=== PATIENT | male | born 1980 | race Caucasian/White ===

== ENCOUNTER 2016-11-15 06:08 | Emergency (ER) | payer BC ==
--- NOTE | 2016-11-15 06:23 | EDPRACDOC ---
- General Information Information Source: Patient Mode of Arrival: Car - History of Present Illness Onset: YESTERDAY AFTERNOON HPI: PT HAD AFIB, CARDIOVERTED IN LATE JULY. FOLLOWED BY [facility]. LEFT ARM PAIN STARTED YESTERDAY, WORSE UPON WAKING UP THIS AM. PAIN STARTS IN SHOULDER , RADIATES DOWN ARM. WAS IN WRIST, BUT NOW PAIN STOPS IN ELBOW LEFT ARM. NO MODIFYING FACTORS. PT REPORTS AFIB FROM ANABOLIC STEROIDS (USED 10 YEARS), DOSE NOT USE ANYMORE. CURRENTLY PAIN/DISCOMFORT 12/09. NO NAUSEA, DIAPHORESIS. PT DOES NOT SMOKE. NO HTN OR CHOL. NO CAD FAM HX. 04/09/16 ECHO SHOWED EF 40%, DIFFUSE HYPOKINESIA, CARDIOMYOPATHY. <Salo Meade - Last Filed: 11/15/16 06:20> <Ailin Ramirez - Last Filed: 11/15/16 10:32> - General Information Stated Complaint: LEFT ARM PAIN Time Seen by Provider: 11/15/16 06:15 Home Medications: Home Medications Amiodarone [Cordarone, Pacerone] 400 mg PO BID #60 tablet 04/13/16 Atorvastatin Calcium [Lipitor] 40 mg PO DAILY #30 tablet 04/13/16 Lisinopril [Prinivil] 5 mg PO DAILY #30 tablet 04/13/16 Metoprolol Tartrate [Lopressor] 50 mg PO BID #60 tablet 04/13/16 Rivaroxaban [Xarelto] 20 mg PO DAILY #30 tablet 04/13/16 Ketorolac Tromethamine [Toradol] 10 mg PO Q6H PRN #10 tab 11/15/16 Allergies/Adverse Reactions: Allergies Allergy/AdvReac Type Severity Reaction Status Date / Time No Known Allergies Allergy Verified 11/15/16 06:38 ED Past Medical History - History Reviewed Yes Nurses notes reviewed and agree except as marked - Patient Medical History Cardiac History: Denies: Coronary Artery Disease, Hypertension, Congestive Heart Failure, Heart Attack, Syncope Psychological History: Reports: Anxiety (Symptoms associated with a new job.) Comment Only: Substance Use Disorder (alcohol) Surgical History: Reports: Other (Remote knee surgery (meniscal repair).) - Family Medical History Reports: Hypertension, Diabetes, Cancer (grandparents passed with lung c/a) - Social Medical History Smoking Status: Never smoker Social History: Comment Only: Substance Use Disorder (alcohol) <Salo Meade - Last Filed: 11/15/16 06:20> - Patient Medical History Cardiac History: Reports: Other (CHRONIC BRADYCARDIA (WHEN ON BBLOCKER)) <Ailin Ramirez Dell - Last Filed: 11/15/16 10:32> EDM Review of Systems - Review of Systems ROS Negative Except as Marked: Yes All systems reviewed and were negative except as marked Constitutional: No Symptoms Reported Respiratory: No Symptoms Reported Cardiovascular: No Symptoms Reported Gastrointestinal: No Symptoms Reported Genitourinary: No Symptoms Reported <Salo Meade - Last Filed: 11/15/16 06:20> - Physical Exam Constitutional: Alert (Awake), No apparent distress Oriented to: Time, Person, Place Last recorded Vital Signs: Oxygen Pulse Oxygen Saturation O2 Device Oxygen Flow Rate Fraction of Inspired Oxygen ( FIO2) - HEENT Head: Normal ( normocephalic) Eye Exam: Normal (PERRL, EOMI, Sclera white) Oropharynx: Normal (Pharynx:Moist without exudate,Gums-no swelling) Nose: No Symptoms Reported (septum midline) Neck: Normal (FROM, trachea at midline) - Respiratory/Cardiovascular Respiratory: Normal - CTA (BBS clear to auscultation without adventitious sounds ) Cardiovascular: Bradycardia - GI Auscultation: Normal (NABS) Palpation: Normal (Soft,No rebound or guarding, non distended) Tenderness: Non tender Astorga's Sign: Negative - Musculoskeletal Back: Normal (Non-Tender) Extremities: Normal (Normal tone, Pulses 2+ No cyanosis or edema, FROM) - Integumentary Skin: Normal, Warm, Dry Lymphatics: Normal (no adenopathy) - Neurologic Memory Impaired: Normal Motor Function: Normal (Normal tone, Pulses 2+ No cyanosis or edema, FROM) Cranial Nerve: Normal (CN II-X11 intact sensation, strength 5/5) Cerebellar: Normal Mood Description: Normal Perception: Normal <Salo Meade - Last Filed: 11/15/16 06:20> - Physical Exam Last recorded Vital Signs: Last Vital Signs Temp 97.5 F 11/15/16 06:15 Pulse 45 L 11/15/16 07:30 Resp 16 11/15/16 07:30 BP 130/66 11/15/16 07:30 Pulse Ox 94 11/15/16 07:30 Oxygen Pulse Oxygen Saturation 94 O2 Device Room Air Oxygen Flow Rate Fraction of Inspired Oxygen ( FIO2) <Ailni Ramirez Dell - Last Filed: 11/15/16 10:32> - EKG EKG #1 EKG Time: 06:21 -: Yes EKG interpreted by me Rate: bpm: 42 Merlin: Normal Rhythm: SB Block: None Hypertrophy: None ST: Normal Comments: ABNORMAL EKG - Additional Information NO ASPIRIN GIVEN DUE TO XARELTO. <Salo Meade - Last Filed: 11/15/16 06:20> - Re-evaluation Re-evaluation 1 Re-evaluation Time: 07:25 (I ASSUMED CARE FROM DR. MEADE WHILE IN STABLE CONDITION. PATIENT PRESENTS WITH PAIN ON THE LEFT DISTAL TRICEPS AREA ELECTED NON IT SOMETIMES RADIATES TO HIS EXTENSOR SURFACE DISTAL FOREARM. NO ALLEVIATING OR AGGRAVATING FACTORS. NO CHEST PAIN OR SHORTNESS OF BREATH AND NAUSEA VOMITING NO DIAPHORESIS. ARE HE DOES HAVE A HISTORY OF ATRIAL FIBRILLATION AND SOME CARDIOMYOPATHY, KNEES NEVER HAD ISCHEMIC WORKUP PERFORMED SUCH A STRESS TEST OR CARDIAC CATHETERIZATION. AT THIS TIME THE PATIENT IS DEFERRING PAIN MANAGEMENT.) Right Left Shoulder Abduction 5/5 5/5 Shoulder Adduction 5/5 5/5 Bicept Flexion 5/5 5/5 Tricept Extention 5/5 5/5 Wrist Dorsiflexion 5/5 5/5 Wrist Volarflexion 5/5 5/5 Hip Flexion 5/5 5/5 Hip Extension 5/5 5/5 Quad Extension 5/5 5/5 Hamstring Flexion 5/5 5/5 Foot Dorsiflexion 5/5 5/5 Foot Plantarflexion 5/5 5/5 LEFT SENSATION NL OVER RAD, ULNAR, MED, AXILLARY NERVE DISTRIBUTION LEFT RAD AND ULNAR ART 2+ Re-evaluation 3 Re-evaluation Time: 10:31 (SYMPTOMS RESOLVED) - Results 11/15/16 06:30 11/15/16 06:30 WBC 9.3 xk/uL (3.8-10.8) 11/15/16 06:30 RBC 4.96 xM/uL (4.70-6.10) 11/15/16 06:30 Hgb 15.3 g/dL (14.0-18.0) 11/15/16 06:30 Hct 44.4 % (42-52) 11/15/16 06:30 MCV 90 fL (80-94) 11/15/16 06:30 MCH 30.8 pg (27-32) 11/15/16 06:30 MCHC 34.3 g/dl (33-36) 11/15/16 06:30 RDW 12.3 % (11.5-14.5) 11/15/16 06:30 Plt Count 250 xk/uL (130-400) 11/15/16 06:30 MPV 8.9 fL (7.4-10.4) 11/15/16 06:30 Neut % (Auto) 47.9 % (45-76) 11/15/16 06:30 Lymph % (Auto) 37.0 % (17-44) 11/15/16 06:30 Mills % (Auto) 10.4 % (3-10) H 11/15/16 06:30 Eos % (Auto) 3.9 % (0-5) 11/15/16 06:30 Baso % (Auto) 0.8 % (0-2) 11/15/16 06:30 Absolute Neuts (auto) 4.37 xk/uL (1.7-8.2) 11/15/16 06:30 Absolute Lymphs (auto) 3.44 xk/uL (0.65-4.75) 11/15/16 06:30 Sodium 138 mEq/L (137-146) 11/15/16 06:30 Potassium 3.8 mEq/L (3.5-5.1) 11/15/16 06:30 Chloride 102 mEq/L (98-107) 11/15/16 06:30 Carbon Dioxide 25 mMOL/L (22-33) 11/15/16 06:30 Anion Gap 15 mEq/L (8-16) 11/15/16 06:30 BUN 23 MG/DL (9-20) H 11/15/16 06:30 Creatinine 1.00 MG/DL (0.66-1.25) 11/15/16 06:30 Estimated GFR (MDRD) > 60 mL/min (>=60) 11/15/16 06:30 Glucose 104 MG/DL (70-99) H 11/15/16 06:30 Calculated Osmolality 270 MOs/Kg (270-290) 11/15/16 06:30 Calcium 8.7 MG/DL (8.4-10.2) 11/15/16 06:30 Total Bilirubin 0.6 MG/DL (0.2-1.3) 11/15/16 06:30 AST 59 IU/L (17-59) 11/15/16 06:30 ALT 130 IU/L (21-72) H 11/15/16 06:30 Alkaline Phosphatase 61 IU/L (38-126) 11/15/16 06:30 Troponin I < 0.01 ng/mL (<.04) 11/15/16 06:30 Rfu-O-Vkedxpiqylc Pept 39 pg/mL (0-450) 11/15/16 06:30 Total Protein 7.2 G/DL (6.3-8.2) 11/15/16 06:30 Albumin 4.3 G/DL (3.5-5.0) 11/15/16 06:30 Lab Results 11/15/16 11/15/16 06:30 06:30 WBC 9.3 RBC 4.96 Hgb 15.3 Hct 44.4 MCV 90 MCH 30.8 MCHC 34.3 RDW 12.3 Plt Count 250 MPV 8.9 Neut % (Auto) 47.9 Lymph % (Auto) 37.0 Mills % (Auto) 10.4 H Eos % (Auto) 3.9 Baso % (Auto) 0.8 Absolute Neuts (auto) 4.37 Absolute Lymphs (auto) 3.44 Sodium 138 Potassium 3.8 Chloride 102 Carbon Dioxide 25 Anion Gap 15 BUN 23 H Creatinine 1.00 Estimated GFR (MDRD) > 60 Glucose 104 H Calculated Osmolality 270 Calcium 8.7 Total Bilirubin 0.6 AST 59 ALT 130 H Alkaline Phosphatase 61 Troponin I < 0.01 Sbk-[id number]-Htdkthajhgs Pept 39 Total Protein 7.2 Albumin 4.3 - Diagnostic Imaging Chest Image interpreted by: Radiologist Patient Name: RUBEN SHEPHERD JR LOC: ED : 1980 AGE: 36 Order Date:11/15/16 Date of Service: Report # [id number] Ord Physician: Salo Meade DO Exam # [id number] Emergency Physician: Salo Meade DO Exam(s): [id number] RAD/DG CHEST PORTABLE CLINICAL DATA: Left shoulder pain. History of cardiomyopathy EXAM: PORTABLE CHEST 1 VIEW COMPARISON: 04/10/2016 FINDINGS: Chronic cardiomegaly. Stable wide upper mediastinum correlating with fat on March [address] Low lung volumes. There is no edema, consolidation, effusion, or pneumothorax. IMPRESSION: Low volume chest without acute finding. Electronically Signed By: Matthieu Callahan M.D. On: 11/15/2016 07:05 Electronically Signed By: Yaniv Callahan MD Electronically Signed Date/Time: [id number] Dictate Date/Time: 11/15/16 0704 Technologist: Cynthia Jimenez Transcribed By: Jose Transcribed Date/Time: 11/15/16 0705 <Ailin Ramirez - Last Filed: 11/15/16 10:32> - Departure Yes I personally saw and evaluated the patient. <Salo Meade - Last Filed: 11/15/16 06:20> - Departure Disposition: Home Education/Counseling Given To: Patient, Family Member Education/Counseling Given Regarding: Diagnosis, Treatment, Prognosis <Ailin Ramirez - Last Filed: 11/15/16 10:32> - Departure Final Diagnosis: Left shoulder pain Qualifiers: Chronicity: acute Qualified Code(s): M25.512 - Pain in left shoulder Instructions: Paresthesia (ED), Arm Pain (ED) Referrals: Esperanza Rivas MD [Primary Care Provider] - One Week Prescriptions: Ketorolac Tromethamine [Toradol] 10 mg PO Q6H PRN #10 tab PRN Reason: Pain
[2016-11-15 06:37] VITALS: TEMP 97.5; BMI 46.2
[2016-11-15 06:48] LABS: AUTOMATED BASOPHIL 0.8 % (0-2); AUTOMATED EOSINOPHIL 3.9 % (0-5); AUTOMATED MONOCYTE 10.4 % (3-10); AUTOMATED NEUTROPHIL 47.9 % (45-76); MPV 8.9 fL (7.4-10.4)
[2016-11-15 06:55] LABS: BLOOD UREA NITROGEN 23 MG/DL (9-20); CALCIUM 8.7 MG/DL (8.4-10.2); CALCULATED OSMOLALITY 270 MOs/Kg (270-290); CHLORIDE 102 mEq/L (98-107); GLUCOSE 104 MG/DL (70-99); SODIUM LEVEL 138 mEq/L (137-146); TOTAL PROTEIN 7.2 G/DL (6.3-8.2)
--- NOTE | 2016-11-15 07:08 | DIRPT ---
CLINICAL DATA: Left shoulder pain. History of cardiomyopathy EXAM: PORTABLE CHEST 1 VIEW COMPARISON: 04/10/2016 FINDINGS: Chronic cardiomegaly. Stable wide upper mediastinum correlating with fat on March [address] Low lung volumes. There is no edema, consolidation, effusion, or pneumothorax. IMPRESSION: Low volume chest without acute finding. Electronically Signed By: Matthieu Callahan M.D. On: 11/15/2016 07:05
[2016-11-15] MEDS: KETOROLAC TROMETH 30 MG/ML VIAL IV ONE (07:38)
[2016-11-15 08:53] LABS: PARTIAL THROMB. TIME 34.1 SEC (22-35); PT-INR 1.2
[2016-11-15 10:33] VITALS: BP 120/62; PULSE 48
== END 2016-11-15 10:43 | disposition home or self-care (01) ==
LOC: ED 06:08
DX: M25.512 Pain in left shoulder (principal)
CPT/HCPCS: 36415; 71010; 80053; 83880; 84484; 85025; 85610; 85730; 93005; 96374; 99285; J1885